=== PATIENT | female | born 1985 | race Caucasian/White ===

== ENCOUNTER 2017-02-16 13:06 | Outpatient (CLI) | payer MEDICAID ==
--- NOTE | 2017-02-17 10:02 | Ultrasound Report ---
LIMITED OB ULTRASOUND: 02/16/2017 CLINICAL INDICATION: Post dates. TECHNIQUE: Real-time scanning was performed with retail service representative static images obtained. FINDINGS: There is a single viable intrauterine gestation, in cephalic presentation. heart rate is 126 BPM. The placenta is anterior, without evidence of previa. Amniotic fluid volume is normal, with an MARIELENA of 9.5. IMPRESSION: NORMAL MARIELENA. MTDD
== END 2017-02-16 13:07 | disposition home or self-care (01) ==
LOC: DI 13:06
PROVIDERS: ATTEND Midwife
DX: O48.0 Post-term pregnancy (principal)
CPT/HCPCS: 76815

== ENCOUNTER 2017-02-19 08:16 | Inpatient (IN) | payer MEDICAID ==
[2017-02-19] MEDS ORDERED: LACTATED RINGERS 1,000 ML IV ONE ×4 (08:46→20:17)
[2017-02-19] MEDS ORDERED: SODIUM CHLORIDE FLUSH 0.9% 10 ML SYRINGE IVP ONE (08:46)
[2017-02-19] MEDS: fentaNYL 100 MCG/2 ML VIAL ONE ×3 (08:47→21:28)
[2017-02-19] MEDS ORDERED: SODIUM CHLORIDE FLUSH 0.9% 10 ML SYRINGE IVP PRN ×3 (08:57→23:08)
[2017-02-19] MEDS ORDERED: LACTATED RINGERS 1,000 ML IV SCH ×3 (09:00→23:45)
[2017-02-19] MEDS ORDERED: fent/BUPIV 2 MCG/0.125% 250 ML EP ONE (09:21)
[2017-02-19] MEDS ORDERED: fentaNYL 100 MCG/2 ML VIAL ONE ×2 (09:45→20:00)
[2017-02-19 10:21] LABS: BASOPHILS # (AUTO) 0.1 10^3/uL (0.0-0.1); BASOPHILS % (AUTO) 0.7 %; HCT - HEMATOCRIT 37.6 % (37.0-47.0); HGB - HEMOGLOBIN 13.1 g/dL (12.0-16.0); LYMPHOCYTES # (AUTO) 1.5 10^3/uL (1.5-3.5); LYMPHOCYTES % (AUTO) 9.5 %; MEAN CORPUSCULAR HEMOGLOBIN 32.5 pg (27.0-31.0); MEAN CORPUSCULAR HGB CONC 34.9 g/dL (32.0-36.0); MEAN PLATELET VOLUME 9.1 fL (7.9-10.8); MONOCYTES # (AUTO) 0.7 10^3/uL (0.0-1.0); MONOCYTES % (AUTO) 4.2 %; NEUTROPHILS # (AUTO) 13.6 10^3/uL (1.5-6.6); NEUTROPHILS % (AUTO) 85.6 %; RED BLOOD COUNT 4.04 10^6/uL (4.20-5.40); RED CELL DISTRIBUTION WIDTH 12.8 % (12.0-15.0); UNCORRECTED WHITE BLOOD COUNT 15.9 x10^3/uL; WHITE BLOOD COUNT 15.9 x10^3/uL (4.8-10.8)
[2017-02-19] MEDS: PENICILLIN G POTASSIUM 2,500,000 UNIT in SODIUM CHLORIDE 0.9% 100ML 100 ML IV SCH ×2 (12:46→17:00)
[2017-02-19] MEDS ORDERED: SODIUM CHLORIDE FLUSH 0.9% 10 ML SYRINGE IVP SCH ×2 (14:00→22:00)
--- NOTE | 2017-02-19 17:18 | HISTORY & PHYSICAL EXAMINATION ---
DATE OF ADMISSION: 02/19/2017 DIAGNOSES: 1. Transfer from [facility]. 2. Persistent OP. 3. Group B strep positive. 4. 42 week gestation The patient is a 31 year old primigravida at 42weeks, 0 days gestational age (Based on LMP and 21 week ultrasound), who was in labor at home attended by a [facility] Enterprise Mobility Architect. For several days she was in the prodrome of labor. The patient entered the active phase and dilated to 8 cm when difficulty with pain control caused her to push reflexively. Patient was in a OP position and the pushing caused significant cervical edema. At roughly 6:30 AM, Vanessa Iraheta requested transfer of care in order to obtain pain control. She ruptured membranes with clear non-foul fluid at 1000 hrs. here at [facility]. There are no signs or symptoms of preeclampsia, fever , or recent illness. The patient is GBS positive and has received 2 doses of Penicillin prior to admission. She had regular care at [facility], reference records. LMP is 12, yielding an ÁLVARO of 02/02. A 21 week ultrasound is consistent with an ÁLVARO of 02/02. anatomy scan at that time was normal. BASELINE LABS: Blood type A positive, antibody negative, Rubella immune. Baseline hemoglobin A1c 5.2, TSH 0.98, chlamydia/gonorrhea negative. Urine culture negative. Cystic fibrosis screening negative. Glucose challenge test 113. PAST MEDICAL HISTORY: The patient denies chronic disease history including diabetes, asthma, and heart disease. Broken left forearm in 1988, minor fractures. PAST SURGICAL HISTORY: [place] tooth extraction in 2002. ALLERGIES: NO KNOWN DRUG ALLERGIES. MEDICATIONS: vitamins with iron. FAMILY HISTORY: Negative for congenital anomalies and inheritable disease. SOCIAL HISTORY: , self-employed jeweler. No drug, tobacco, or alcohol use reported. REVIEW OF SYSTEMS: No fevers, chills, or recent unexplained weight change. HEENT: Negative. LUNGS: Negative. CARDIAC: Negative. GI: Negative. : Reference HPI. NEURO: Negative except for maybe some mild changes to carpal tunnel secondary to . SKIN: Negative. PHYSICAL EXAMINATION: GENERAL: The patient upright, alert, oriented, cooperative. VITAL SIGNS: Afebrile. Pulse 70, blood pressure 138/86. HEENT: Dentition in good repair. EOMI. Nonicteric sclerae. NECK: No thyromegaly, supple neck. LUNGS: Clear to auscultation. CARDIAC: Exam reveals no murmur, no gallop. BREASTS: Deferred. ABDOMEN: Nontender, no organomegaly. No upper quadrant tenderness. UTERUS: Contractions mild, normal resting tone. Vertex presentation, 8 to 8-1/2 pound fetus. Estimated weight 8.5 pounds FHT TRACING: Category 1 EXTERNAL GENITALIA: No lesions. VAGINA: Clear, nonfoul fluid. CERVIX: 8 cm, 50% effaced, near 0 station. EXTREMITIES: Mild pedal edema. Reflexes 2+ and equal. LABORATORY: White count 15.9, hemoglobin 13.3, platelet 197. ASSESSMENT: This is a term in spontaneous labor who is found to be in a persistent posterior presentation. She would benefit with epidural pain relief. After epidural we will begin expectant management. Normally 25% of patients can deliver OP, another 50% revert to OA, and another 25% require C- section. PLAN: 1. Epidural. 2. Continue GBS prophylaxis. 3. Expectant management. JOB #: [id number] EXT JOB #:[id number] MAURY
[2017-02-19] MEDS ORDERED: CITRIC ACID/SODIUM CITRATE 15 ML UDC PO SCH (19:04)
[2017-02-19] MEDS ORDERED: ceFAZolin 2 GM/50 ML 2 GM/50 ML BAG IV SCH (19:15)
[2017-02-19] MEDS ORDERED: OXYTOCIN/SODIUM CHLORIDE 250 ML IV ONE (19:28)
[2017-02-19] MEDS ORDERED: SODIUM CHLORIDE 0.9% 100ML 100 ML IV ONE (19:29)
[2017-02-19] MEDS ORDERED: ONDANSETRON 4 MG/2 ML VIAL IVP ONE (19:50)
[2017-02-19] MEDS ORDERED: KETAMINE 500 MG/10 ML VIAL IVP ONE (19:50)
[2017-02-19] MEDS ORDERED: CARBOPROST TROMETHAMINE 250 MCG/ML AMP IM ONE (19:50)
[2017-02-19] MEDS ORDERED: DEXAMETHASONE 4 MG/ML VIAL IVP ONE (19:50)
[2017-02-19] MEDS ORDERED: METHYLERGONOVINE 0.2 MG/ML AMP IVP ONE (19:50)
[2017-02-19] MEDS ORDERED: MORPHINE PF 5 MG/10 ML AMP EP ONE (19:50)
[2017-02-19] MEDS ORDERED: OXYTOCIN 10 UNIT/ML VIAL IV ONE (19:50)
[2017-02-19] MEDS ORDERED: fentaNYL 100 MCG/2 ML VIAL IVP ONE (19:50)
[2017-02-19] MEDS ORDERED: LIDOCAINE-MPF 2% 5 ML VIAL IM ONE (19:50)
[2017-02-19] MEDS ORDERED: ACETAMINOPHEN 1,000 MG/100 ML 100 ML IV ONE ×2 (21:00→21:14)
[2017-02-19] MEDS ORDERED: IBUPROFEN 600 MG TABLET PO ONE (21:13)
--- NOTE | 2017-02-19 23:03 | OPERATIVE REPORT ---
Operative Report - General Admit Date: 02/19/17 Procedure Date: 02/19/17 Planned Procedure: Primary lower segment transverse section Pre-Op Diagnosis: Failure to descend; persistent occiput posterior presentation ; 42wk EGA Procedure Performed: Primary lower segment transverse section; bilateral uterine artery ligation; injection of Hemabate x2 Post Op Diagnosis: LGA fetus;Same as above - Procedure Note Primary Surgeon: Nolberto Hui MD Secondary Surgeon: Hal Lizarraga Anesthesia Technique: Epidural Estimated Blood Loss (mL): 1,000 Urine Output (mL): 400 Drain/Tube Type: Other (Edward catheter) Complications: Uterine atony nonresponsive to Pitocin and massage, Responsive to Hemabate
[2017-02-19] MEDS ORDERED: oxyCODONE 5 MG TABLET PO PRN (23:08)
[2017-02-19] MEDS ORDERED: ONDANSETRON 4 MG/2 ML VIAL IVP PRN (23:08)
[2017-02-19] MEDS ORDERED: diphenhydrAMINE 25 MG CAPSULE PO PRN (23:08)
[2017-02-19] MEDS ORDERED: ZOLPIDEM 5 MG TABLET PO PRN (23:08)
[2017-02-20] MEDS: IBUPROFEN 600 MG TABLET PO SCH ×4 (02:43→20:01)
[2017-02-20] MEDS: ACETAMINOPHEN 500 MG TABLET PO SCH ×4 (02:43→20:01)
[2017-02-20] MEDS ORDERED: SODIUM CHLORIDE FLUSH 0.9% 10 ML SYRINGE IVP SCH (06:00)
[2017-02-20 06:47] LABS: BASOPHILS # (AUTO) 0.1 10^3/uL (0.0-0.1); BASOPHILS % (AUTO) 0.5 %; EOSINOPHILS % (AUTO) 0.1 %; HCT - HEMATOCRIT 32.3 % (37.0-47.0); HGB - HEMOGLOBIN 11.3 g/dL (12.0-16.0); LYMPHOCYTES # (AUTO) 1.2 10^3/uL (1.5-3.5); LYMPHOCYTES % (AUTO) 8.5 %; MEAN CORPUSCULAR HEMOGLOBIN 33.2 pg (27.0-31.0); MEAN CORPUSCULAR HGB CONC 35.1 g/dL (32.0-36.0); MEAN CORPUSCULAR VOLUME 94.5 fL (81.0-99.0); MEAN PLATELET VOLUME 8.9 fL (7.9-10.8); MONOCYTES # (AUTO) 0.7 10^3/uL (0.0-1.0); MONOCYTES % (AUTO) 5.2 %; NEUTROPHILS % (AUTO) 85.7 %; RED BLOOD COUNT 3.42 10^6/uL (4.20-5.40)
[2017-02-20] MEDS: DOCUSATE SODIUM 100 MG CAPSULE PO SCH ×2 (09:54→20:01)
--- NOTE | 2017-02-20 12:00 | PROVIDER PROGRESS NOTE ---
Subjective - General Admit Date: 02/19/17 Procedure Date: 02/19/17 Post Op Days: 1 Procedure Performed: Primary lower segment transverse section, bilateral uterine artery - Review of Systems Wound/Incisions: positive: Other (Bandage dry and intact) Drain Type: Edward discontinued General: positive: No symptoms, Other (Feels well and happy, breast-feeding) HEENT: positive: No symptoms Pulmonary: positive: No symptoms Cardiovascular: positive: No symptoms Gastrointestinal: positive: Abdominal pain (Appropriate Postop), Flatus Genitourinary: positive: Other (Normal non-foul lochia) Musculoskeletal: positive: No symptoms Skin: positive: No symptoms Neurological: Psychiatric: positive: No symptoms, Other (Happy, nursing father involved ) Objective - Patient Data Vital Signs: Vital Signs x48h Temp Pulse Resp BP Pulse Ox 02/20/17 08:38 98.1 F 80 16 120/62 97 02/20/17 04:13 82 18 96 Weight: Weight 02/18/17 02/19/17 02/20/17 23:59 23:59 23:59 Weight (kg) 113.398 kg Intake & Output: Intake and Output Totals x24h 02/18/17 02/19/17 02/20/17 23:59 23:59 23:59 Intake Total 100 2405 Output Total 850 1700 Balance -750 705 - Lab Results Lab Results: 02/20/17 06:40 Other Lab Results: Lab Results x24hrs 02/20/17 02/19/17 Range/Units 06:40 10:13 WBC 14.0 H (4.8-10.8) x10^3/uL RBC 3.42 L (4.20-5.40) 10^6/uL Hgb 11.3 L (12.0-16.0) g/dL Hct 32.3 L (37.0-47.0) % MCV 94.5 (81.0-99.0) fL MCH 33.2 H (27.0-31.0) pg MCHC 35.1 (32.0-36.0) g/dL RDW 13.0 (12.0-15.0) % Plt Count 161 (130-450) 10^3/uL MPV 8.9 (7.9-10.8) fL Neut # 12.0 H (1.5-6.6) 10^3/uL Lymph # 1.2 L (1.5-3.5) 10^3/uL Gulf # 0.7 (0.0-1.0) 10^3/uL Eos # 0.0 (0.0-0.7) 10^3/uL Baso # 0.1 (0.0-0.1) 10^3/uL Absolute Nucleated RBC 0.01 x10^3/uL Nucleated RBC % 0.0 /100WBC Blood Type A POSITIVE Antibody Screen NEGATIVE - Current Medications Current Medications: Current Medications Generic Name Dose Route Start Last Admin Trade Name Brandinq PRN Reason Stop Dose Admin Acetaminophen 1,000 mg 02/19/17 23:45 02/20/17 05:38 Tylenol PO 1,000 mg Q8H GINGER Administration Docusate Sodium 100 mg 02/20/17 09:00 02/20/17 09:54 Colace 100mg Capsule PO 100 mg BID GINGER Administration Cefazolin Sodium/Dextrose 2 gm in 50 mls @ 100 mls/hr 02/19/17 19:15 19:30 Ancef 2 Gm/50 Ml IV 100 mls/hr Q8H GINGER Administration Ibuprofen 600 mg 02/19/17 23:45 02/20/17 05:38 Motrin PO 600 mg Q6H GINGER Administration Sodium Chloride 10 ml 02/20/17 06:00 02/20/17 05:37 Normal Saline Flush 0.9% IVP 10 ml Q8HR GINGER Administration Exam - Exam Vital Signs: Vital Signs (72 hours) 02/19/17 02/19/17 02/19/17 21:05 21:10 21:15 Temperature Heart Rate [ Brachial] Respiratory Rate Blood Pressure [Right Brachial artery] O2 Saturation 99 96 96 02/19/17 02/19/17 02/19/17 21:20 21:25 21:38 Temperature Heart Rate [ Brachial] Respiratory Rate Blood Pressure [Right Brachial artery] O2 Saturation 97 96 95 02/19/17 02/19/17 02/19/17 21:48 22:03 22:18 Temperature Heart Rate [ 99 91 78 Brachial] Respiratory 18 20 18 Rate Blood Pressure 129/73 131/72 H 127/70 [Right Brachial artery] O2 Saturation 98 99 97 02/19/17 02/19/1717 22:33 22:48 23:08 Temperature 98.1 F Heart Rate [ 83 87 89 Brachial] Respiratory 18 18 18 Rate Blood Pressure 130/66 130/65 130/65 [Right Brachial artery] O2 Saturation 98 98 98 02/19/17 02/20/17 02/20/17 23:30 00:01 00:30 Temperature 98.8 F Heart Rate [ 83 76 79 Brachial] Respiratory 18 18 Rate Blood Pressure 124/68 116/58 L [Right Brachial artery] O2 Saturation 97 96 96 02/20/17 02/20/17 02/20/17 01:30 02:30 03:30 Temperature 98.8 F Heart Rate [ 73 102 H 80 Brachial] Respiratory 18 Rate Blood Pressure 109/57 L [Right Brachial artery] O2 Saturation 93 97 96 02/20/17 02/20/17 04:13 08:38 Temperature 98.1 F Heart Rate [ 82 80 Brachial] Respiratory 18 16 Rate Blood Pressure 120/62 [Right Brachial artery] O2 Saturation 96 97 General: Alert, Oriented x3, No acute distress HEENT: Mucous membr. moist/pink Lungs: Clear to auscultation, Normal air movement Cardiovascular: Regular rate, Normal S1, Normal S2, No murmurs Abdomen: Normal bowel sounds, No tenderness, No hepatospenomegaly Extremities: Normal pulses, Other (Mild pedal edema, Compression boots in place) Skin: No rashes Neurological: Normal speech, Normal tone, Sensation intact, Cranial nerves 3-12 NL Psych/Mental Status: Mood NL Assessment/Plan - Assessment/Plan Assessment: Postoperatively patient is recovering well from section and bilateral R artery ligation due to severe uterine atony. At the time of surgery estimated blood loss approximately 1000. Postoperative hemoglobin mildly anemic but not problematic. Patient adjusting well . Due to prolonged labor and positive GBS status will remain alert for signs and symptoms of endometritis. Currently uterus is not tender and patient is afebrile. Both patient and happy with an result. Plan: * Continue supportive care * Debriefed Dr. Aspen Sheriff, obstetric cross coverage for continuation of care management under her watch
--- NOTE | 2017-02-20 14:08 | OPERATIVE REPORT ---
DATE OF SURGERY: 02/19/2017 00:00:00 DIAGNOSES 1. Failure to descend. 2. Transfer from [facility]. 3. Persistent occiput posterior. 4. Cervical edema. 5. Group B strep positive. 6. A 42-week gestation. POSTOPERATIVE DIAGNOSES 1. Failure to descend. 2. Transfer from [facility]. 3. Persistent occiput posterior. 4. Cervical edema. 5. Group B strep positive. 6. A 42-week gestation. PROCEDURES: Primary lower segment transverse section, bilateral uterine artery ligation. Hemabate injections for hypotonic uterus. VENDING MACHINE COLLECTOR: Nolberto Hui MD, FACOG. EPIC PROFESSIONAL: Gayatri Perla, certified nurse general supervisor. ANESTHESIA: Tung Lopez, certified nurse creping machine operator helper; epidural. TECHNICAL SERVICES SPECIALIST: Dr. Hidalgo, Pediatrics. COMPLICATIONS: Uterine atony. ESTIMATED BLOOD LOSS: 1000. DRAINS: Edward with clear urine. FINDINGS: A living male infant was born weighing 4060grams , 8 lbs 15 oz, and scoring Apgars of 8 and 9. Infant was delivered from an OP position. There was no nuchal cord, but there was a bandolier cord and cord entanglement about the extremities. There was no obvious trauma or malformation. Placenta was grade 2 with a 3-vessel cord. There was no meconium staining or foul fluid. Examination of the uterus, tubes, and ovaries finds all normal. TECHNIQUE: The patient was admitted in the morning at 7-8 cm and 0 station with cervical edema secondary to involuntary pushing. Epidural was given, and the patient was allowed to rest initially. Contractions ensued every 3-4 minutes and strip remained category 1. Despite adequate trial of labor and ruptured membranes, the vertex never went past 0 station/+1. After an adequate trial, we discussed section as best mode of delivery since the occiput posterior could not be spun and did not resolve spontaneously. Informed consent process was done. The patient was brought to the operating room and placed in a supine position for administration of general anesthesia. She was prepped and draped in the customary sterile fashion. Loading epidural dose was given and anesthesia level good through T10. Time out briefing was done per protocol. Abdominal wall was uneventfully opened with a Pfannenstiel incision. There was a fairly thick abdominal fat pad. Bladder blade was inserted. A curvilinear lower segment hysterotomy was cut with scalpel and expanded with finger traction. Cvir Tech secured to the vertex with his right hand and guided the head into the hysterotomy wound. Feller Buncher Operator applied a moderate amount of fundal pressure and due to soft tissue dystocia, the head did not deliver. A Kiwi vacuum was applied to the vertex and with a moderate amount of pull, delivery was affected from the OP position. Shoulders were large and difficult to deliver. The cord was doubly clamped and transected. Cord blood samples were given. was handed to Dr. Hidalgo. Uterus was exteriorized. There was significant atony that did not respond to massage or IV Pitocin. Two doses of Hemabate were given. After the first dose was not effective, bilateral uterine artery ligation was done with 0 Vicryl. This stemmed the flow. Inspection of the hysterotomy wound found a 2.5 cm downward extension in the midline. This was first closed with a running stitch of 2-0 Vicryl. Next, the hysterotomy was closed with a running interlocked stitch of 0 Vicryl. This was followed by a running imbricating cardinal stitch of 0 Vicryl. Bleeding continued from small vessels in the lower segment under the hysterotomy. Two running sutures of 2-0 chromic were used. Additionally, interrupted and figure- of-8 stitches of 2-0 chromic were used to stanch the bleeding. Surgicel was then placed after the bleeding was controlled. Bladder flap was closed with a running stitch of 2-0 Vicryl. Abdominal cavity was doubly lavaged with warm normal saline. Uterus was placed back in the abdominal cavity, and the operative sites inspected for bleeding. They were hemostatically secure. The peritoneum was closed with a running stitch of 2-0 Vicryl. The rectus muscles were tacked back together with interrupted stitches of 0 Vicryl. Fascia was closed in 2 parts with running suture of 0 Vicryl. Subcutaneous space was closed with interrupted sutures of 2-0 Vicryl. Skin was closed with a running subcuticular stitch of 4- 0 Monocryl and dressed with Dermabond. At the termination of the case, all sponge, needle, and instrument counts were confirmed as correct. DISPOSITION: The patient was taken to the recovery room in stable condition. She had some postoperative pain complaints, which were treated with IV morphine , Fentanyl and ketamine. Reference Tung Lopez's notes. JOB #: [id number] EXT JOB #:[id number] MTDD
[2017-02-21] MEDS: IBUPROFEN 600 MG TABLET PO SCH ×2 (01:42→11:27)
[2017-02-21] MEDS: ACETAMINOPHEN 500 MG TABLET PO SCH (04:06)
--- NOTE | 2017-02-21 09:34 | Discharge Plan ---
Discharge Plan Disposition: 01 Home, Self Care Condition: Stable Diet: Regular Activity Restrictions: Activity as Tolerated Shower Restrictions: No Driving Restrictions: No No Smoking: If you smoke, Please STOP! Call for help. Follow-up with: Nolberto Hui MD [Provider Admit Priv/Credential] -
[2017-02-21] MEDS: DOCUSATE SODIUM 100 MG CAPSULE PO SCH (11:28)
[2017-02-21 14:17] VITALS: BP 127/67
--- NOTE | 2017-02-22 06:30 | DISCHARGE SUMMARY ---
DATE OF ADMISSION: 02/19/2017 DATE OF DISCHARGE: 02/21/2017 DIAGNOSES 1. Persistent occiput posterior, failure to descend despite adequate trial of labor. 2. Group B strep positive colonization. 3. A 42-week gestation. 4. Swollen cervix. HISTORY: The patient is a 31-year-old primigravida at 42 weeks 0 days gestation based on a 21-week ultrasound who was laboring at home, attended by Vanessa Iraheta of [facility]. She remained in prodromal labor for roughly 2 days and became exhausted. She dilated to 8 cm and furt her progress did not occur despite 6-8 hours. At that point, the patient was transferred to [facility] for epidural analgesia and treatment. Reference my typewritten H and P, plus Vanessa Iraheta's notes. HOSPITAL COURSE: The patient was admitted and after initial evaluation an epidural was placed. Prior to arrival, she had already had 2 doses of penicillin antibiotic and this was continued. Membranes we re ruptured with clear fluid and there was no sign of infection. Despite another 6 hours of observat ion after epidural, there was no decrease in cervical swelling and the head did not descend despite q .3 minute contractions. Throughout, the strip remained normal. Baseline white count was 15.9 with hem oglobin of 13 and platelets 197. At that time it became evident that a section was necessary. Informed consent was given. Ref erence my detailed operative note. section was eventful due to uterine atony and brisk bleed ing with a total blood loss of 1000 mL. Numerous injections of Methergine and Hemabate along with herrera ateral uterine artery ligations stemmed the blood flow. A living male infant was born weighing 8 poun ds 15 ounces. Shoulder delivery was difficult. Presentation was confirmed as OP. There was a 3-vessel cord without significant entanglement. Placenta was intact and grade 2. The patient went to the [facility] very room in good condition. Postoperatively, she received doses of fentanyl and ketamine, as well as morphine to control pain. Post hemoglobin was 11.3 with a white count of 14.0. On postop day 1, she felt well and was nursing without difficulty. She rapidly advanced to a full t and activity. By the afternoon of postoperative day #2, she strongly desired discharge and was disc harged home with detailed instructions. The patient remained afebrile during her postop recovery. She will report any temperature over 100.5, uterine tenderness, foul discharge or excessive bleeding. FOLLOWUP: Follow up in 1 week for wound check. DISCHARGE MEDICATIONS 1. vitamins and iron. 2. Motrin 600 q.6 hours. 3. [place] 5/325 one to two tabs q.4 breakthrough pain. 4. Colace 100 mg b.i.d. JOB #: [id number] EXT JOB #:[id number]
== END 2017-02-21 16:15 | disposition home or self-care (01) | DRG 765 ==
LOC: WFO 08:16 → FBP 08:18 → WFO 08:56 → FBP 08:57
PROVIDERS: ADMIT Obstetrics & Gynecology; ATTEND Obstetrics & Gynecology
PROC: 0W3R0ZZ Control Bleeding in Genitourinary Tract, Open Approach (ICD-10-PCS; 2017-02-19)
PROC: 10D00Z1 Extraction of Products of Conception, Low, Open Approach (ICD-10-PCS; principal; 2017-02-19 19:30)
DX: O64.0XX0 Obstructed labor due to incomplete rotation of fetal head, not applicable or unspecified (principal); O72.1 Other immediate postpartum hemorrhage; O36.63X0 Maternal care for excessive fetal growth, third trimester, not applicable or unspecified; O90.81 Anemia of the puerperium; O90.89 Other complications of the puerperium, not elsewhere classified; O99.824 Streptococcus B carrier state complicating childbirth; O69.82X0 Labor and delivery complicated by other cord entanglement, without compression, not applicable or unspecified; O75.81 Maternal exhaustion complicating labor and delivery; O48.0 Post-term pregnancy; Z3A.42 42 weeks gestation of pregnancy; Z37.0 Single live birth
CPT/HCPCS: 36415; 85025; 86850; 86900; 86901

== ENCOUNTER 2017-04-01 19:36 | Outpatient (CLI) | payer MEDICAID ==
--- NOTE | 2017-04-03 07:30 | Ultrasound Report ---
EXAM: PELVIC ULTRASOUND EXAM DATE: 04/01/2017 09:04 PM. CLINICAL HISTORY: RETAINED PRODUCTS. COMPARISON: None. TECHNIQUE: Realtime transabdominal pelvic scan performed to identify the uterus and adnexa with stati c image documentation. Transvaginal ultrasound not performed. FINDINGS: Uterus: 5.7 x 3.2 x 7.9 cm, volume 74.3 cc. Anteverted position. Not well visualized Masses: Questionable subserosal leiomyoma versus right ovary measuring 3.7 x 3.5 x 3.4 cm. Endometrium: Not seen Cervix: Unremarkable. Right Ovary: Not convincingly seen Left Ovary: Questionably seen measuring 3.2 x 2.3 x 2.4 cm, volume 8.7 cc. Free Fluid: None. Other: Patient unable to tolerate transducer pressure. IMPRESSION: 1. Very limited exam with suboptimal visualization of uterus and ovaries with transabdominal imaging only 2. Endometrial stripe not identified and therefore retained products cannot be assessed for 3. Questionable right uterine subserosal leiomyoma versus right ovary RADIA Referring Provider Line: [phone] SITE ID: [id number]
== END 2017-04-01 19:37 | disposition home or self-care (01) ==
LOC: DI 19:36
PROVIDERS: ATTEND Midwife
DX: O73.1 Retained portions of placenta and membranes, without hemorrhage (principal)
CPT/HCPCS: 76856

== ENCOUNTER 2017-04-15 08:21 | Outpatient (CLI) | payer MEDICAID ==
--- NOTE | 2017-04-15 16:21 | Ultrasound Report ---
PELVIC ULTRASOUND: 04/15/2017 CLINICAL HISTORY: Status post 02/19/2017, assess for involution of the uterus. Intermittent spotting. TECHNIQUE: Real time scanning by the art manager with saved static images was reviewed. Transabdominal approach with global evaluation with transvaginal scanning for detailed assessment of the endometrium. FINDINGS UTERUS: 10.9 x 5.4 x 2.6 cm, volume 80 cubic centimeters. Retroverted configuration. Unremarkable echotexture. Endometrial echo thickness is 2.3 mm, normal. RIGHT OVARY: 3.8 x 2.1 x 2.2 cm, volume 9.1 cubic centimeters, normal echotexture. LEFT OVARY: 4.2 x 2.2 x 2.4 cm, volume 11.8 cubic centimeters, normal echotexture. A small amount of free fluid is present in cul-de-sac. IMPRESSION: UNREMARKABLE RETROVERTED UTERUS, NORMAL VOLUME 80 CUBIC CENTIMETERS. JOB #: [id number] EXT JOB #: [id number] [facility]
== END 2017-04-15 08:22 | disposition home or self-care (01) ==
LOC: DI 08:21
PROVIDERS: ATTEND Obstetrics & Gynecology
DX: N85.3 Subinvolution of uterus (principal); N85.4 Malposition of uterus
CPT/HCPCS: 76830; 76856

== ENCOUNTER 2017-07-16 20:11 | Outpatient (CLI) | payer MEDICAID ==
--- NOTE | 2017-07-17 11:28 | Ultrasound Report ---
PELVIC ULTRASOUND: 07/16/2017 CLINICAL INDICATION: IUD, dysfunctional uterine bleeding. COMPARISON: 04/15/2017. TECHNIQUE: Transabdominal pelvic ultrasound performed for global evaluation. Transvaginal pelvic ultrasound performed for detailed evaluation. Real-time scanning performed and static images obtained. FINDINGS: The uterus is retroverted, measuring 5.8 x 5.1 x 2.9 cm. The endometrium measures 7 mm. An IUD is noted in the expected location. No focal myometrial lesion is present. The ovaries are normal, with the right measuring 4.1 x 3.3 x 2.2 cm, and the left measuring 3.3 x 2.3 x 2.2 cm. No free fluid is present. IMPRESSION: IUD IN PLACE. NORMAL PELVIC ULTRASOUND. NO SIGNIFICANT INTERVAL CHANGE. TD: 07/17/2017 11:26
== END 2017-07-16 20:12 | disposition home or self-care (01) ==
LOC: DI 20:11
PROVIDERS: ATTEND Family Medicine
DX: N93.8 Other specified abnormal uterine and vaginal bleeding (principal); R10.2 Pelvic and perineal pain; Z97.5 Presence of (intrauterine) contraceptive device
CPT/HCPCS: 76830; 76856

== ENCOUNTER 2021-03-20 14:48 | Emergency (ER) | payer MEDICAID ==
[2021-03-20 15:30] LABS: BASOPHILS % (AUTO) 0.4 %; EOSINOPHILS % (AUTO) 0.4 %; HCT - HEMATOCRIT 43.9 % (37.0-47.0); HGB - HEMOGLOBIN 14.7 g/dL (12.0-16.0); LYMPHOCYTES # (AUTO) 2.4 10^3/uL (1.5-3.5); LYMPHOCYTES % (AUTO) 30.8 %; MEAN CORPUSCULAR HGB CONC 33.5 g/dL (32.0-36.0); MEAN CORPUSCULAR VOLUME 92.6 fL (81.0-99.0); MEAN PLATELET VOLUME 9.9 fL (7.9-10.8); MONOCYTES # (AUTO) 0.5 10^3/uL (0.0-1.0); NEUTROPHILS # (AUTO) 4.8 10^3/uL (1.5-6.6); NEUTROPHILS % (AUTO) 62.3 %; PLT - PLATELET COUNT 268 10^3/uL (130-450); RED BLOOD COUNT 4.74 10^6/uL (4.20-5.40); RED CELL DISTRIBUTION WIDTH 11.8 % (12.0-15.0); WHITE BLOOD COUNT 7.7 x10^3/uL (4.8-10.8)
[2021-03-20 15:36] LABS: ALBUMIN 4.9 g/dL (3.2-5.5); ALBUMIN/GLOBULIN RATIO 1.8 (1.0-2.2); BILIRUBIN,TOTAL 0.9 mg/dL (0.2-1.0); CALCIUM 9.5 mg/dL (8.5-10.3); CREATININE 0.9 mg/dL (0.4-1.0); POTASSIUM 3.7 mmol/L (3.5-5.0); TOTAL PROTEIN 7.6 g/dL (6.7-8.2)
--- NOTE | 2021-03-20 16:33 | ED Physician Documentation ---
PD HPI ABD PAIN - Stated complaint Stated Complaint: abd px - Chief complaint Chief Complaint: Abd Pain - History obtained from History obtained from: Patient - History of Present Illness Timing - onset: How many days ago (2) Timing - duration: Days (2) Timing - details: Abrupt onset, Still present Quality: Sharp, Pain Location: LLQ Radiation: Lower back Improved by: Laying still Worsened by: Moving, Position, Palpation Associated symptoms: Other (vaginal bleeding is unchanged). No: Fever, Nausea, Vomiting, Hematemesis, Diarrhea, Constipation, Melena, Hematochezia, Dysuria, Hematuria, Chest pain, Dizzy Similar symptoms before: Has not had sx before Recently seen: Clinic - Additional information Additional information: 35-year-old female with an IUD in place has had some spotting for the past year and she has gone in to see the [facility] doctor about this and was seen last week and an order for an ultrasound was made. She has not had the ultrasound done yet. 2 days ago she was in her home when her 4-year-old son weighing 40 pounds came up to her and ended up jumping right on her pelvic bone on the left side. She has some pain associated with that and she is having a sharp pain when she turns certain ways. She has not had any nausea or vomiting with this she is not had any constipation or diarrhea she does have suprapubic left pelvic pain and pain on the pelvic bone itself. She was seen in the urgent care today and sent to the emergency department for CT scan. She has otherwise not been ill Review of Systems Constitutional: denies: Fever Ears: denies: Ear pain Nose: denies: Congestion Throat: denies: Sore throat Cardiac: denies: Chest pain / pressure Respiratory: denies: Dyspnea, Cough GI: reports: Abdominal Pain. denies: Nausea, Vomiting : denies: Dysuria, Frequency Skin: denies: Rash Musculoskeletal: denies: Neck pain, Back pain, Extremity pain PD PAST MEDICAL HISTORY - Allergies Allergies/Adverse Reactions: Allergies Allergy/AdvReac Type Severity Reaction Status Date / Time No Known Drug Allergies Allergy Verified 03/20/21 14:59 - Social History Smoking Status: Never smoker PD ED PE NORMAL - Vitals Vital signs reviewed: Yes (hypertensive ) - General General: Alert and oriented X 3, No acute distress, Well developed/nourished - HEENT HEENT: Atraumatic, PERRL, EOMI - Neck Neck: Supple, no meningeal sign - Cardiac Cardiac: RRR, No murmur - Respiratory Respiratory: No respiratory distress, Clear bilaterally - Abdomen Abdomen: Normal bowel sounds, Soft, Non distended, No organomegaly, Other (mild suprapubic tenderness to the left side with point tenderness centered over the pubic bone on the left. 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, No motor deficit, No sensory deficit, Normal speech Eye Opening: Spontaneous Motor: Obeys Commands Verbal: Oriented GCS Score: 15 - Psych Psych: Normal mood, Normal affect Results - Vitals Vitals: Vital Signs - 24 hr 03/20/21 14:56 Temperature 36.4 C L Heart Rate 78 Respiratory 16 Rate Blood Pressure 117/83 H O2 Saturation 98 Oxygen O2 Source Room air - Labs Labs: Laboratory Tests 03/20/21 03/20/21 03/20/21 15:06 15:19 15:19 WBC 7.7 RBC 4.74 Hgb 14.7 Hct 43.9 MCV 92.6 MCH 31.0 MCHC 33.5 RDW 11.8 L Plt Count 268 MPV 9.9 Neut # (Auto) 4.8 Lymph # (Auto) 2.4 Nicholas # (Auto) 0.5 Eos # (Auto) 0.0 Baso # (Auto) 0.0 Absolute Nucleated RBC 0.00 Nucleated RBC % 0.0 Sodium 138 Potassium 3.7 Chloride 99 L Carbon Dioxide 30 Anion Gap 9.0 BUN 9 Creatinine 0.9 Estimated GFR (MDRD) 70 L Glucose 97 Calcium 9.5 Total Bilirubin 0.9 AST 23 ALT 20 Alkaline Phosphatase 35 L Total Protein 7.6 Albumin 4.9 Globulin 2.7 Albumin/Globulin Ratio 1.8 Lipase 41 Urine Color YELLOW Urine Clarity CLEAR Urine pH 7.0 Ur Specific [place] 1.010 Urine Protein NEGATIVE Urine Glucose (UA) NEGATIVE Urine Ketones TRACE Urine Occult Blood NEGATIVE Urine Nitrite NEGATIVE Urine Bilirubin NEGATIVE Urine Urobilinogen 0.2 (NORMAL) Ur Leukocyte Esterase NEGATIVE Ur Microscopic Review NOT INDICATED Urine Culture Comments NOT INDICATED Urine HCG, Qual NEGATIVE - Rads (name of study) CT ab pel with Radiology: Prelim report reviewed (Impression: No significant posttraumatic abnormalities can be seen. Incidental note is made of: Apparent gallstones IUD premature lumbar degenerative change, worst at L5-S1.), EMP read indepedently, See rad report PD MEDICAL DECISION MAKING - ED course Complexity details: reviewed results, re-evaluated patient, considered differential, d/w patient ED course: 35-year-old female sent in from the urgent care clinic for left suprapubic pain after trauma has no obvious abnormality related to the trauma associated.She will need to follow-up with her [facility] doctor regarding her continued care for abnormal uterine bleeding. Departure - Departure Disposition: 01 Home, Self Care Clinical Impression: Contusion of surface of pelvic region Condition: Stable Instructions: ED Abdominal Pain Female Non-Specific Abdominal Pain Follow-Up: [facility] [Provider Group]
[2021-03-20] MEDS ORDERED: IOVERSOL 320 100 ML VIAL IVP ONE ×2 (16:41→17:37)
[2021-03-20 16:46] LABS: BILIRUBIN,URINE NEGATIVE (NEGATIVE); GLUCOSE, URINE (UA) NEGATIVE (NEGATIVE); KETONES,URINE (UA) TRACE mg/dL (NEGATIVE); LEUKOCYTE ESTERASE, URINE NEGATIVE (NEGATIVE); NITRITE,URINE NEGATIVE (NEGATIVE); OCCULT BLOOD,URINE NEGATIVE (NEGATIVE); PROTEIN,URINE NEGATIVE (NEGATIVE); UROBILINOGEN,URINE 0.2 (NORMAL) E.U./dL (NORMAL)
[2021-03-20 16:48] LABS: CLARITY,URINE CLEAR (CLEAR); HCG UR QUAL NEGATIVE
--- NOTE | 2021-03-20 18:07 | CT Report ---
PROCEDURE: Abdomen/Pelvis W INDICATIONS: suprapubic trauma with pain L CONTRAST: IV CONTRAST: Optiray 320 ml: 100 PO CONTRAST: *NO PO CONTRAST TECHNIQUE: After the administration of IV contrast, 5 mm thick sections acquired from the diaphragms to the symp hysis. 5 mm thick coronal and sagittal reformats were acquired. For radiation dose reduction, the f ollowing was used: automated exposure control, adjustment of mA and/or kV according to patient size. COMPARISON: None. FINDINGS: Image quality: Excellent. ABDOMEN: Lung bases: Lung bases are clear. Heart size is normal. Solid organs: Liver and spleen are normal in size and enhancement. Gallbladder demonstrates potenti al gallstones within its lumen Biliary system is non dilated. Pancreas enhances normally. No adren al nodules. Kidneys demonstrate normal size and enhancement, without hydronephrosis. Peritoneum and bowel: In this patient with this given history, scrutiny is given to left suprapubic region. No significant abnormalities can be seen within this area. Bowel loops demonstrate normal wall thickness and caliber. No free fluid or air. Nodes and vessels: No retroperitoneal or mesenteric adenopathy by size criteria. Aorta and inferior vena cava are normal in size. Miscellaneous: No ventral hernias. No significant abdominal wall postoperative atelectatic abnormal ities can be seen. PELVIS: Genitourinary: Bladder wall thickness is normal. An IUD is seen at the expected location. Miscellaneous: No inguinal hernias or adenopathy. Bones: No suspicious bony lesions. No vertebral body compression fractures. Multiple levels of lumb ar spine degenerative change are seen, which are worst at the L5-S1 level. IMPRESSION: No significant posttraumatic abnormalities can be seen. Incidental note is made of: Apparent gallstones IUD Premature lumbar degenerative change, worst at L5-S1. Reviewed by: Sawyer Arguello MD on 03/20/2021 5:06 PM RUST Approved by: Sawyer Arguello MD on 03/20/2021 5:06 PM RUST Station ID: [id number]
[2021-03-20 19:07] VITALS: BP 117/79
== END 2021-03-20 19:05 | disposition home or self-care (01) ==
LOC: ED 14:48
DX: S30.0XXA Contusion of lower back and pelvis, initial encounter (principal); W51.XXXA Accidental striking against or bumped into by another person, initial encounter; Y93.89 Activity, other specified; N93.9 Abnormal uterine and vaginal bleeding, unspecified; Z97.5 Presence of (intrauterine) contraceptive device
CPT/HCPCS: 36415; 74177; 80053; 81003; 81025; 83690; 85025; 99282; 99284; Q9967; 81001; 87086

== ENCOUNTER 2021-04-01 10:20 | Outpatient (CLI) | payer MEDICAID ==
--- NOTE | 2021-04-01 12:08 | Ultrasound Report ---
PROCEDURE: Pelvic w/Transvaginal INDICATIONS: LLQ ABDOMINAL PAIN TECHNIQUE: Real-time scanning was performed of the pelvic organs, with image documentation. Additional endovagi nal scanning was necessary due to incomplete visualization of the adnexal and endometrial structures by transabdominal scanning. COMPARISON: None. FINDINGS: No pathologic free abdominal or pelvic fluid. Uterus: Uterus is borderline enlarged in size at 9.6 x 4.2 x 6.0 cm. The endometrium measures 14 mm in combined thickness. Appropriately positioned IUD incidentally noted Ovaries: Right ovary measures 4.1 x 2.1 x 3.2 cm with a volume of 14.4 cc. Left ovary measures 4.6 x 1.7 x 2.4 cm with a volume of 9.5 cc. Possible hemorrhagic or involuting physiologic follicle involv ing the right ovary measuring 1.6 cm. Similar-appearing involuting or presumed hemorrhagic follicle s een in the left ovary measuring 2.3 cm. IMPRESSION: Appropriately positioned IUD. Presumed involuting or hemorrhagic physiologic follicles involving both ovaries although this could b e confirmed with repeat ultrasound in 6 weeks as dependent on clinical symptoms. Reviewed by: Keaton Rolon MD on 04/01/2021 12:06 PM PST Approved by: Keaton Rolon MD on 04/01/2021 12:06 PM PST Station ID: [id number]
== END 2021-04-01 10:21 | disposition home or self-care (01) ==
LOC: DI 10:20
PROVIDERS: ATTEND Obstetrics & Gynecology
DX: R10.32 Left lower quadrant pain (principal); R93.89 Abnormal findings on diagnostic imaging of other specified body structures; Z97.5 Presence of (intrauterine) contraceptive device

== ENCOUNTER 2022-04-30 13:41 | Outpatient (CLI) | payer MEDICAID ==
[2022-04-30 19:38] LABS: THYROID STIMULATING HORMONE 1.55 uIU/mL (0.34-5.60)
[2022-04-30 19:43] LABS: FREE T4 (FREE THYROXINE) 0.81 ng/dL (0.58-1.64)
[2022-04-30 19:44] LABS: PROLACTIN 10.05 ng/mL
[2022-04-30 20:06] LABS: FOLLICLE STIMULATING HORMONE 6.81 mIU/mL; LUTEINIZING HORMONE 8.02 mIU/mL
[2022-05-01 12:59] LABS: ESTIMATED AVERAGE GLUCOSE 97 mg/dL (70-100)
[2022-05-02 07:09] LABS: DHEA-SULFATE 78.6 ug/dL (57.3-279.2); ESTRADIOL 47.7 pg/mL (.); PROGESTERONE 0.4 ng/mL (.); SEX HORM BINDING GLOB SERUM 99.7 nmol/L (24.6-122.0)
== END 2022-04-30 13:42 | disposition home or self-care (01) ==
LOC: LAB.S 13:41
PROVIDERS: ATTEND Nurse Practitioner
DX: N93.8 Other specified abnormal uterine and vaginal bleeding (principal)
CPT/HCPCS: 36415; 82397; 82626; 82627; 82670; 83001; 83002; 83036; 84144; 84146; 84270; 84403; 84439; 84443

== ENCOUNTER 2022-11-03 10:46 | Outpatient (CLI) | payer MEDICAID ==
--- NOTE | 2022-11-03 17:17 | XRAY Report ---
PROCEDURE: Cervical Spine Complete INDICATIONS: SHOULDER PAIN, NUMBNESS AND TINGLING, RIGHT TECHNIQUE: 4 views of the cervical spine acquired. COMPARISON: None. FINDINGS: Bones: No fractures or dislocations to the T1 level. Oblique images show bilateral foraminal stenos is at C2-3 and C3-4. Disc space narrowing C5-6 and C6-7. Soft tissues: No prevertebral soft tissue swelling. 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
== END 2022-11-03 10:47 | disposition home or self-care (01) ==
LOC: DI.S 10:46
PROVIDERS: ATTEND Nurse Practitioner Acute Care
DX: M50.31 Other cervical disc degeneration, high cervical region (principal); M48.02 Spinal stenosis, cervical region

== ENCOUNTER 2023-10-17 08:00 | Outpatient (CLI) | payer MEDICAID | END 2023-10-17 23:59 | disposition home or self-care (01) | LOC: LAB.N 08:00 | PROVIDERS: ATTEND Physician Assistant Medical | DX: J02.9 Acute pharyngitis, unspecified (principal) | CPT/HCPCS: 87070 ==

== ENCOUNTER 2023-11-05 13:33 | Outpatient (CLI) | payer MEDICAID ==
--- NOTE | 2023-11-06 09:07 | Mammography Report ---
BILATERAL DIGITAL DIAGNOSTIC MAMMOGRAM 3D/2D: 11/05/2023 CLINICAL: Focal left breast pain. Baseline exam. No prior exams were available for comparison. Both breasts are heterogeneously dense, which may obscure small masses (category c / 51-75% glandular tissue). No significant masses, calcifications, or other findings are seen in either breast. IMPRESSION: INCOMPLETE: NEEDS ADDITIONAL IMAGING EVALUATION No mammographic evidence of malignancy. A targeted ultrasound is recommended and will immediately follow. Based on the Tyrer Cuzick model (a risk assessment model) the patient's lifetime risk is 15.5% and he r 10 year risk is 2.0%. According to the ACR, ACS, and NCCN guidelines, an annual breast MRI exam syeda ng with mammogram is recommended if the patient's lifetime risk is 20% or greater. This exam was interpreted at Station ID: [id number]. NOTE: For mammograms, a report in lay terms will be sent to the patient. Approximately 15% of breast malignancies will not be visualized mammographically. In the management of a palpable breast mass, a negative mammogram must not discourage biopsy of a clinically suspicious lesion. Electronically Signed By: Lee Chiang M.D. slc/:11/05/2023 15:27:53 ACR BI-RADS Category 0: Incomplete 3340F PARENCHYMAL PATTERN: (D) - The breast(s) demonstrate(s) heterogeneously dense fibroglandular parenchy ma. BI-RADS CATEGORY: (0) - 0 Ultrasound [id number] Immediate follow-up LATERALITY: (B)
--- NOTE | 2023-11-06 09:08 | Ultrasound Report ---
LIMITED ULTRASOUND OF LEFT BREAST: 11/05/2023 CLINICAL: Focal left breast pain. Comparison is made to exam dated: 11/05/2023 mammogram - [facility]. Real-time ultrasound of the left breast 2-3 o'clock region was performed. Negrete scale images of the r eal-time examination were reviewed. No significant abnormalities were seen sonographically in the left breast in the region of pain. IMPRESSION: NEGATIVE There is no sonographic evidence of malignancy. A 1 year screening mammogram is recommended. Exam findings were conveyed to the patient. Patient is advised to monitor for significant change. Cli nical follow-up as needed. This exam was interpreted at Station ID: [id number]. Electronically Signed By: Lee Chiang M.D. slc/:11/05/2023 15:29:59 Ultrasound BI-RADS: 1 Negative BI-RADS CATEGORY: (1) - 1 RECOMMENDATION: (ANNUAL) - Recommend routine annual screening mammography. [id number] 1 year screening LATERALITY: (B)
== END 2023-11-05 13:34 | disposition home or self-care (01) ==
LOC: DI 13:33
PROVIDERS: ATTEND Nurse Practitioner
DX: N64.4 Mastodynia (principal); R92.333 Mammographic heterogeneous density, bilateral breasts